=== PATIENT | female | born 1965 | race Caucasian/White ===

== ENCOUNTER 2017-03-25 18:22 | Emergency (ER) | payer SELFPAY ==
[~2017-03-25] VITALS: Ht 167.6 cm; Wt 81.8 kg
[~2017-03-25 18:22] MED LIST: ALBU8.5H IH; D-ME118S13 PO; PSEU-191 PO; ZINC10LO6 PO
[2017-03-25] MEDS ORDERED: POVIDONE-IODINE 10% 15 ML SOLUTION UD TP ONE (19:45)
[2017-03-25] MEDS ORDERED: BUPIVACAINE HCL/PF 0.25% 10 ML VIAL INJ ONE (19:45)
[2017-03-25 21:24] VITALS: BP 127/75
== END 2017-03-25 21:27 | disposition home or self-care (01) ==
LOC: EMS 18:23
DX: N76.0 Acute vaginitis (principal); F17.210 Nicotine dependence, cigarettes, uncomplicated
CPT/HCPCS: 56405; 99284; J3490

== ENCOUNTER 2018-07-18 11:47 | Emergency (ER) | payer SELFPAY ==
[~2018-07-18] VITALS: Ht 165.1 cm; Wt 86.4 kg
[2018-07-18] MEDS ORDERED: TETRAHYDROZOLINE HCL 0.05% 15 ML OPHTHALMIC SOLUTION OS ONE (13:45)
[2018-07-18] MEDS ORDERED: FLUORESCEIN SODIUM 1 MG STRIP OS ONE (14:15)
[2018-07-18] MEDS ORDERED: PROPARACAINE HCL 0.5% 15 ML OPHTHALMIC SOLUTION OS ONE (14:15)
[2018-07-18 14:50] VITALS: BP 144/94
== END 2018-07-18 15:05 | disposition home or self-care (01) ==
LOC: EMS 11:49
DX: H11.32 Conjunctival hemorrhage, left eye (principal); I10 Essential (primary) hypertension; F17.210 Nicotine dependence, cigarettes, uncomplicated
CPT/HCPCS: 99406

== ENCOUNTER 2019-06-03 22:00 | Emergency (ER) | payer MEDICAID ==
[~2019-06-03] VITALS: Ht 167.6 cm; Wt 86.4 kg
[2019-06-03 22:25] LABS: GLUCOSE,POINT OF CARE 128 MG/DL (70-110)
[2019-06-03] MEDS ORDERED: ACETAMINOPHEN 500 MG TABLET PO ONE (23:00)
[2019-06-03] MEDS ORDERED: KETOROLAC TROMETHAMINE 30 MG/ML VIAL IM ONE (23:00)
[2019-06-04 02:45] VITALS: BP 134/78
== END 2019-06-04 03:15 | disposition home or self-care (01) ==
LOC: EMS 22:00
DX: S13.8XXA Sprain of joints and ligaments of other parts of neck, initial encounter (principal); E11.9 Type 2 diabetes mellitus without complications; V49.9XXA Car occupant (driver) (passenger) injured in unspecified traffic accident, initial encounter; Y93.89 Activity, other specified; Y92.488 Other paved roadways as the place of occurrence of the external cause; Y99.8 Other external cause status
CPT/HCPCS: 36415; 72125; 82962; 84702; 96372; 99284; J1885